=== PATIENT | male | born 1980 | race Hispanic/Latino ===

== ENCOUNTER 2017-10-22 11:19 | Emergency (ER) | payer OTHER ==
[2017-10-22 11:22] VITALS: BMI 29.8
[2017-10-22 11:23] VITALS: TEMP 98; O2SAT 100
[2017-10-22] MEDS ORDERED: Tetracaine 0.5% Ophth 2 ML BOTTLE ONE (11:42)
[2017-10-22] MEDS ORDERED: Fluorescein 1 mg Ophthalmic Strip ONE (11:42)
--- NOTE | 2017-10-22 11:42 | ED PDOC ---
HPI: Eye Injury/Pain Time Seen by Provider: 10/22/17 11:40 Chief Complaint (Nursing): Eye Problem Chief Complaint (Provider): BILATERAL EYE PAIN History Per: Patient (36 Y/O MALE HERE WITH BILATERAL EYE IRRITATION X 10 DAYS. STATES HE WAS ORIGINALLY GIVEN POLYTRIM BY URGENT 10 DAYS AGO AND USED WITHIN 3 DAYS. SUBSEQUENTLY SEEN BY EYE DOCTOR (UNSURE MEDICAL RECORDS ASSISTANT/OPTHAL) AND TOLD PROBABLY MOST LIKELY VIRAL HIS CHILD WAS RECENTLY AFFLICTED WITH THE SAME. DENIES ANY URI/COUGH/FEVER. WAS SEEN BY URGENT CARE TODAY AND ADVISED VISIT TO ED FOR EVALUATION. NOTES MODERATE PHOTOSENSITIVITY//EYE PAIN NEW TODAY.) Past Medical History Reviewed: Historical Data, Nursing Documentation, Vital Signs Vital Signs: Last Vital Signs Temp 98 F 10/22/17 11:22 Pulse 68 10/22/17 11:22 Resp 20 10/22/17 11:22 BP 174/116 H 10/22/17 11:22 Pulse Ox 100 10/22/17 11:22 - Family History Family History: States: No Known Family Hx - Home Medications Home Medications: Ambulatory Orders Medication Instructions Recorded No Known Home Med 10/22/17 - Allergies Allergies/Adverse Reactions: Allergies Allergy/AdvReac Type Severity Reaction Status Date / Time No Known Allergies Allergy Verified 10/22/17 11:29 Review of Systems ROS Statement: Except As Marked, All Systems Reviewed And Found Negative Physical Exam - Reviewed Nursing Documentation Reviewed: Yes Vital Signs Reviewed: Yes - Physical Exam Appears: Positive for: Well, Non-toxic, No Acute Distress Head Exam: Positive for: ATRAUMATIC, NORMAL INSPECTION, NORMOCEPHALIC Skin: Positive for: Normal Color, Warm, DRY Eye Exam: Positive for: Normal appearance, EOMI, PERRL, Conjunctival injection ( BILATERAL), Other (SMALL PUNCTATE LESIONS NOTED BILATERAL LOWER CORNEAL) ENT: Positive for: Normal ENT Inspection Neck: Positive for: Normal, Painless ROM Cardiovascular/Chest: Positive for: Regular Rate, Rhythm Respiratory: Positive for: CNT, Normal Breath Sounds Gastrointestinal/Abdominal: Positive for: Normal Exam, Soft Back: Positive for: Normal Inspection Extremity: Positive for: Normal ROM Neurologic/Psych: Positive for: Alert, Oriented - ECG O2 Sat by Pulse Oximetry: 100 - Progress ED Course And Treament: D/W DR. ROSE. RECOMMENDS PATIENT COME TO HIS OFFICE TOMORROW AT 9AM FOR EVALUATION AND START OF STEROID EYE DROPS. Disposition - Clinical Impression Clinical Impression: Conjunctivitis - Patient ED Disposition Is Patient to be Admitted: No - Disposition Referrals: Arnel Rose MD [Staff Provider] - Disposition: Routine/Home Disposition Time: 12:08 Condition: FAIR Additional Instructions: NOTHING IN EYE UNTIL SEEN BY OPTHALMOLOGY TOMORROW. Instructions: Conjunctivitis ([place]) (DC) Forms: [employer] ([employer])
[2017-10-22 12:05] VITALS: BP 146/92
[2017-10-22 12:11] VITALS: PULSE 82; RESP 16
== END 2017-10-22 12:32 | disposition home or self-care (01) ==
LOC: H.ER 11:19
DX: H10.9 Unspecified conjunctivitis (principal)